=== PATIENT | male | born 1960 | race Two or more races ===

== ENCOUNTER 2016-08-15 08:29 | Emergency (ER) | payer SELFPAY ==
[2016-08-15 08:35] VITALS: BP 122/75; PULSE 62; RESP 20; TEMP 97.9; O2SAT 97
--- NOTE | 2016-08-15 08:42 | EDPHY ---
HPI/HX/ROS/PE/MDM Narrative: CHIEF COMPLAINT: Epistaxis HPI: The patient is a 55-year-old male who complains of intermittent epistaxis for the past 3 days. The patient states his nose bleeds when he blows it and when he looks down. The patient is not anticoagulated. REVIEW OF SYSTEMS: Aside from elements discussed in the HPI, a comprehensive 10-point review of systems was reviewed and is negative. PMH: Hypertension, Diabetes II. SOCIAL HISTORY: . PHYSICAL EXAM: General: Patient is alert, in no acute distress. ENT: Eyes are normal to inspection. Nose: Dried clotted blood in left nostril Neck: Normal inspection. Full range of motion. Respiratory: No respiratory distress. Breath sounds normal bilaterally. Cardiovascular: Regular rate and rhythm. Strong peripheral pulses. Skin: Normal color. No rash. Warm and dry. Extremities: Normal appearance. Full range of motion. Neuro: Oriented x3. Normal motor function. Normal sensory function. ED Course: The patient complains of intermittent epistaxis for the past 3 days. On exam he has dried blood in his left nostril. He is not anticoagulated. Plan to check CBC. PT/INR are normal. CBC is unremarkable. I arranged for the patient to followup with the oncall ENT specialist at 12:45 p.m. today. MDM: This patient presents with several episodes of epistaxis, with no current bleeding. CBC and INR are normal. I have made an appointment with ENT for later today for the patient. Given lack of active bleeding, I see no indication for any intervention at this time in the ED. - Data Points Laboratory Results: Laboratory Results 08/15/16 08:53 08/15/16 08/15/16 08:53 08:53 WBC 4.03 10^3/uL 10^3/uL (3.80-9.50) RBC 4.51 10^6/uL 10^6/uL (4.40-6.38) Hgb 14.2 g/dL g/dL (13.7-17.5) Hct 40.6 % % (40.0-51.0) MCV 90.0 fL fL (81.5-99.8) MCH 31.5 pg pg (27.9-34.1) MCHC 35.0 g/dL g/dL (32.4-36.7) RDW 12.1 % % (11.5-15.2) Plt Count 185 10^3/uL 10^3/uL (150-400) MPV 9.0 fL fL (8.7-11.7) Neut % (Auto) 54.3 % % (39.3-74.2) Lymph % (Auto) 32.8 % % (15.0-45.0) Mason % (Auto) 6.7 % % (4.5-13.0) Eos % (Auto) 5.5 % % (0.6-7.6) Baso % (Auto) 0.5 % % (0.3-1.7) Nucleat RBC Rel Count 0.0 % % (0.0-0.2) Absolute Neuts (auto) 2.19 10^3/uL 10^3/uL (1.70-6.50) Absolute Lymphs (auto) 1.32 10^3/uL 10^3/uL (1.00-3.00) Absolute Monos (auto) 0.27 10^3/uL L 10^3/uL (0.30-0.80) Absolute Eos (auto) 0.22 10^3/uL 10^3/uL (0.03-0.40) Absolute Basos (auto) 0.02 10^3/uL 10^3/uL (0.02-0.10) Absolute Nucleated RBC 0.00 10^3/uL 10^3/uL (0-0.01) Immature Gran % 0.2 % % (0.0-1.1) Immature Gran # 0.01 10^3/uL 10^3/uL (0.00-0.10) PT 13.6 SEC SEC (12.0-15.0) INR 1.05 (0.83-1.16) General Initial Vital Signs: Initial Vital Signs Temperature (C) 36.6 C 08/15/16 08:31 Heart Rate 62 08/15/16 08:31 Respiratory Rate 20 08/15/16 08:31 Blood Pressure 122/75 H 08/15/16 08:31 O2 Sat (%) 97 08/15/16 08:31 O2 Delivery Mode Room Air Allergies/Adverse Reactions: No Known Allergies Allergy (Verified 08/15/16 08:31) Home Medications: Medication Instructions Recorded Lisinopril 08/15/16 Metformin HCl 08/15/16 Departure - Departure Disposition: Home, Routine, Self-Care Clinical Impression: Epistaxis Condition: Good Instructions: Nosebleed (ED) Additional Instructions: You have been referred to an ear, nose, and throat specialist, Dr. Lema. Please followup with the referred physician at 12:45 p.m. today. Referrals: ROBERTA MANZO [Other] - As per Instructions Lazaro Lema MD [Medical Doctor] - As per Instructions (Ear, Nose, Throat Specialist) Report Scribed for: Pepe Carrasco Report Scribed by: Darline Rodas Date of Report: 08/15/16 Time of Report: 08:42 Physician Review and Approval Statement: Portions of this note were transcribed by a curator medical museum. I personally performed the history, physical exam, and medical decision-making; and confirmed the accuracy of the information in the transcribed note.
[2016-08-15 09:00] LABS: % IMMATURE GRANULYOCYTES 0.2 % (0.0-1.1); ABSOLUTE IMMATURE GRANULOCYTES 0.01 10^3/uL (0.00-0.10); ADD DIFF? NO; ADD MORPH? NO; ADD SCAN? NO; ATYPICAL LYMPHOCYTE FLAG 20 (0-99); FRAGMENT RBC FLAG 0 (0-99); HEMATOCRIT 40.6 % (40.0-51.0); HEMOGLOBIN 14.2 g/dL (13.7-17.5); LEFT SHIFT FLG 0 (0-99); LIPEMIA HEMOLYSIS FLAG 90 (0-99); MEAN CELL HEMOGLOBIN 31.5 pg (27.9-34.1); PLATELET CLUMPS FLAG 0 (0-99); PLATELET COUNT 185 10^3/uL (150-400); RED BLOOD CELL COUNT 4.51 10^6/uL (4.40-6.38); RED CELL DISTRIBUTION WIDTH 12.1 % (11.5-15.2)
[2016-08-15 09:07] LABS: INR 1.05 (0.83-1.16); PROTIME(PATIENT) 13.6 SEC (12.0-15.0)
== END 2016-08-15 09:20 | disposition home or self-care (01) ==
DX: R04.0 Epistaxis (principal); I10 Essential (primary) hypertension; E11.9 Type 2 diabetes mellitus without complications; Z79.84 Long term (current) use of oral hypoglycemic drugs